=== PATIENT | female | born 1940 | race African-American/Black ===

== ENCOUNTER 2016-12-13 07:08 | Outpatient (CLI) | payer MEDICARE, OTHER ==
[2016-12-13 08:10] LABS: Hemoglobin A1c 8.5 % (4.0-6.0)
[2016-12-13 08:57] LABS: ALT (SGPT) 34 U/L (8-55); AST (SGOT) 28 U/L (5-34); Albumin 3.7 g/dL (3.4-4.8); Alkaline Phosphatase 82 U/L (40-150); Anion Gap 13 mmol/L (10-20); BUN (Urea Nitrogen) 13 mg/dL (9.8-20.1); Bilirubin, Direct 0.1 mg/dL (0.1-0.3); Bilirubin, Total 0.3 mg/dL (0.2-1.2); Calc. Creatinine Clearance 0 mL/min (70-130); Calcium 8.9 mg/dL (7.8-10.44); Carbon Dioxide 26 mmol/L (23-31); Cardiac Risk 4.3 (Less than 4.5); Chloride 105 mmol/L (98-107); Cholesterol 153 mg/dl (< 200 Desired); Estimated GFR-MDRD 59; Glucose 112 mg/dL (83-110); HDL Cholesterol 36 mg/dL (>60 Neg Risk); LDL Cholesterol, Calculated 87 mg/dL; Potassium 4.1 mmol/L (3.5-5.1); Protein, Total 7.5 g/dL (6.0-8.3); Sodium 140 mmol/L (136-145); Triglycerides 149 mg/dL (Less than 150)
== END 2016-12-13 07:09 ==
LOC: MADLABBHPM 07:08
PROVIDERS: ATTEND Family Medicine
DX: E11.9 Type 2 diabetes mellitus without complications (principal)
CPT/HCPCS: 36415; 80048; 80061; 80076; 83036

== ENCOUNTER 2017-03-11 07:28 | Outpatient (CLI) | payer MEDICARE, OTHER ==
[2017-03-11 07:57] LABS: Hemoglobin A1c 8.2 % (4.0-6.0)
[2017-03-11 08:58] LABS: ALT (SGPT) 39 U/L (8-55); AST (SGOT) 24 U/L (5-34); Albumin 3.9 g/dL (3.4-4.8); Alkaline Phosphatase 90 U/L (40-150); Anion Gap 13 mmol/L (10-20); BUN (Urea Nitrogen) 12 mg/dL (9.8-20.1); Bilirubin, Direct 0.2 mg/dL (0.1-0.3); Bilirubin, Total 0.5 mg/dL (0.2-1.2); Calc. Creatinine Clearance 0 mL/min (70-130); Calcium 9.3 mg/dL (7.8-10.44); Carbon Dioxide 26 mmol/L (23-31); Cardiac Risk 3.8 (Less than 4.5); Chloride 107 mmol/L (98-107); Cholesterol 148 mg/dl (< 200 Desired); Estimated GFR-MDRD 63; Glucose 130 mg/dL (83-110); HDL Cholesterol 39 mg/dL (>60 Neg Risk); LDL Cholesterol, Calculated 80 mg/dL; Potassium 4.2 mmol/L (3.5-5.1); Protein, Total 7.8 g/dL (6.0-8.3); Sodium 142 mmol/L (136-145); Triglycerides 143 mg/dL (Less than 150)
[2017-03-11 10:52] LABS: Hemoglobin 13.9 g/dL (12.0-16.0); Manual Diff?? YES; Mean Corpuscular HGB CONC 31.6 g/dL (32.0-36.0); Mean Corpuscular Volume 95.1 fL (81.0-99.0); Mean Platelet Volume 12.7 fL (7.4-10.4); Platelet Count 157 thou/uL (130-400); RBC Distribution Width 11.9 % (11.5-14.5); Red Blood Cell (RBC) Count 4.62 mill/uL (4.20-5.40); White Blood Cell (WBC) Count 5.1 thou/uL (4.8-10.8)
[2017-03-11 10:53] LABS: Eosinophils 2 % (0-10); Lymphocytes 48 % (21-51); MDiff Complete? YES; Monocytes 3 % (0-10); Neutrophil 47 % (42-75)
[2017-03-11 10:54] LABS: Anisocytosis SLIGHT = 6-15 cells (100X) (0-5/hpf); PLT Morphology Comment Appears Adequate
== END 2017-03-11 07:29 | disposition home or self-care (01) ==
LOC: MADLABBHPM 07:28
PROVIDERS: ATTEND Family Medicine
DX: E11.22 Type 2 diabetes mellitus with diabetic chronic kidney disease (principal); N18.3 Chronic kidney disease, stage 3 (moderate); E78.5 Hyperlipidemia, unspecified
CPT/HCPCS: 36415; 80048; 80061; 80076; 83036; 85025

== ENCOUNTER 2017-05-17 07:24 | Emergency (ER) | payer MEDICARE, MEDICAID ==
--- NOTE | 2017-05-17 08:34 | RAD ---
LEFT KNEE FOUR VIEWS: History: Knee pain. FINDINGS: Joint spaces are preserved. There is mild chondral calcinosis involving the lateral joint space. Mini mal degenerative change. No evidence of joint effusion. No evidence of fracture. Arterial calcificati on is noted. IMPRESSION: Minimal degenerative change. No acute abnormality. POS: [facility]
== END 2017-05-17 08:45 | disposition home or self-care (01) ==
LOC: MADERS 07:24
DX: S83.412A Sprain of medial collateral ligament of left knee, initial encounter (principal); K21.9 Gastro-esophageal reflux disease without esophagitis; E11.9 Type 2 diabetes mellitus without complications; I10 Essential (primary) hypertension; Z79.899 Other long term (current) drug therapy; Z79.82 Long term (current) use of aspirin; Z79.4 Long term (current) use of insulin; X50.1XXA Overexertion from prolonged static or awkward postures, initial encounter

== ENCOUNTER 2017-12-05 09:22 | Emergency (ER) | payer MEDICARE, MEDICAID | END 2017-12-05 09:52 | disposition left against medical advice (07) | LOC: MADERS 09:22 | DX: Z53.21 Procedure and treatment not carried out due to patient leaving prior to being seen by health care provider (principal) ==

== ENCOUNTER 2018-03-16 12:03 | Emergency (ER) | payer MEDICARE, MEDICAID ==
[2018-03-16] MEDS ORDERED: Ibuprofen 800 MG TAB ONE (13:20)
--- NOTE | 2018-03-16 13:48 | RAD ---
RIGHT TIBIA AND FIBULAR TWO VIEWS: HISTORY: Fall with tibia/fibula pain. FINDINGS: There are vascular calcifications noted. There are some arthritic changes of the knee. There are no signs of fracture or dislocation. IMPRESSION: No evidence of fracture. POS: [facility]
--- NOTE | 2018-03-16 13:49 | RAD ---
RIGHT HAND THREE VIEWS: History: Fall on hand. Pain. FINDINGS: There are arthritic changes of the hand and wrist. There are no signs of fracture or dislocation. IMPRESSION: No evidence of fracture. POS: [facility]
== END 2018-03-16 13:56 | disposition home or self-care (01) ==
LOC: MADERS 12:03
DX: S63.91XA Sprain of unspecified part of right wrist and hand, initial encounter (principal); S80.11XA Contusion of right lower leg, initial encounter; I10 Essential (primary) hypertension; E78.00 Pure hypercholesterolemia, unspecified; E11.9 Type 2 diabetes mellitus without complications; W01.0XXA Fall on same level from slipping, tripping and stumbling without subsequent striking against object, initial encounter

== ENCOUNTER 2019-07-10 09:41 | Outpatient (CLI) | payer MEDICARE, MEDICAID ==
--- NOTE | 2019-07-10 10:01 | RAD ---
3 views right shoulder: 07/10/2019 COMPARISON: None HISTORY: Chronic shoulder pain, fall one year ago FINDINGS: No displaced fracture or evidence of dislocation is seen. There is mild inferior osteophyte formation of the acromion and the acromioclavicular joint. No widening of the AC or CC interspace. IMPRESSION: Degenerative change. No acute osseous abnormality.
== END 2019-07-10 09:42 | disposition home or self-care (01) ==
LOC: MADRAD 09:41
PROVIDERS: ATTEND Family Medicine
DX: M25.511 Pain in right shoulder (principal); M19.011 Primary osteoarthritis, right shoulder

== ENCOUNTER 2019-12-18 20:00 | Outpatient (CLI) | payer MEDICARE, OTHER | END 2019-12-18 20:01 | disposition home or self-care (01) | LOC: MADLAB 20:00 | PROVIDERS: ATTEND Family Medicine | DX: B34.9 Viral infection, unspecified (principal) | CPT/HCPCS: 87633 ==

== ENCOUNTER 2019-12-23 10:52 | Emergency (ER) | payer MEDICARE, OTHER ==
[2019-12-23] MEDS ORDERED: Acetaminophen 500 MG TAB ONE (11:07)
[2019-12-23 11:42] LABS: ALT (SGPT) 21 U/L (8-55); AST (SGOT) 27 U/L (5-34); Albumin 3.7 g/dL (3.4-4.8); Alkaline Phosphatase 62 U/L (40-110); Anion Gap 16 mmol/L (10-20); BUN (Urea Nitrogen) 16 mg/dL (9.8-20.1); Bilirubin, Total 0.2 mg/dL (0.2-1.2); CK (CPK) 316 U/L (29-168); Calc. Creatinine Clearance 0 mL/min (70-130); Calcium 8.2 mg/dL (7.8-10.44); Carbon Dioxide 21 mmol/L (23-31); Chloride 104 mmol/L (98-107); Estimated GFR-MDRD 44; Globulin 3.6 g/dL (2.4-3.5); Glucose 222 mg/dL (83-110); Potassium 4.3 mmol/L (3.5-5.1); Protein, Total 7.3 g/dL (6.0-8.3); Sodium 137 mmol/L (136-145)
[2019-12-23 11:45] LABS: Band 2 % (5-11); Giant Platelets SLIGHT; Hemoglobin 12.9 g/dL (12.0-16.0); Large Platelets SLIGHT; Lymphocytes 12 % (21-51); MDiff Complete? YES; Mean Corpuscular HGB CONC 30.5 g/dL (32.0-36.0); Mean Corpuscular Volume 95.1 fL (78.0-98.0); Metamyelocyte 2 % (0-0); Monocytes 6 % (0-10); Neutrophil 65 % (42-75); Platelet Count 109 thou/uL (130-400); Platelet Morphology Comment Appears Decreased; RBC Distribution Width 12.1 % (11.5-14.5); RBC Morphology Normal; Reactive Lymphocytes 13 % (0-10); Red Blood Cell (RBC) Count 4.44 mill/uL (4.20-5.40); White Blood Cell (WBC) Count 4.3 thou/uL (4.8-10.8)
[2019-12-23 12:03] LABS: Bilirubin Negative (Negative); Blood, Urine Trace (Negative); Clarity Hazy (Clear); Glucose, Urine (Dipstick) Negative (Negative); Ketone, Urine 15 mg/dL (Negative); Leukocyte Negative (Negative); Nitrite Negative (Negative); Protein, Urine (Dipstick) 100 mg/dL (Neg-Trace); Urobilinogen 0.2 mg/dL (Less than 2); pH, Urine 5.5 (5.0-9.0)
[2019-12-23 12:11] LABS: Bacteria/HPF Rare-Few HPF (None Seen); RBC/HPF 0-3 HPF (0-3); WBC/HPF None Seen HPF (0-3)
[2019-12-23] MEDS ORDERED: Sodium Chloride 0.9% 100 ML ONE (13:36)
[2019-12-23] MEDS ORDERED: cefTRIAXone\\ROCEPHIN 2 GM VIAL ONE ×2 (13:36→13:37)
[2019-12-23] MEDS ORDERED: Sodium Chloride 0.9% 1,000 ML ONE (13:56)
--- NOTE | 2019-12-23 14:26 | RAD ---
CHEST ONE VIEW: History: Cough, fever. FINDINGS: Heart size is within normal limits for portable technique. Post op sternotomy change. Slightly increa sed opacity in both lungs irvin, more so in the right upper and lower lung zones. I cannot exclude t his as ground glass opacities. If Covid is clinically suspected, CT may be helpful in evaluating thes e findings. IMPRESSION: Possible ground glass opacities within the lung irvin. POS: [facility]
--- NOTE | 2019-12-23 14:44 | CT ---
CT CHEST: Date: 12-23-2019 Provided Clinical History: Fever FINDINGS: No comparisons. The heart, pericardium, and great vessels are suboptimally evaluated in the absence of IV contrast ma terial. Vascular calcification including coronary calcifications demonstrated. Median sternotomy tran ges are seen. There is no evidence for thoracic lymph node enlargement with limitations due to lack of IV contrast. The airway appears patent and of normal caliber. There is no pleural fluid or pneumothorax apparent. There are multifocal patchy areas of ground glass opacity throughout both lungs, predominating in the subpleural regions. No nolan consolidation is evident. The visualized portions of the upper abdomen demonstrate no significant abnormality. Left renal hypod ensity, statistically a cyst, but incompletely characterized in the absence of IV contrast material. Left adrenal nodule is too small to definitively characterize, statistically abnormal. The osseous structures demonstrate no concerning lytic or blastic lesions. IMPRESSION: Multifocal ground glass opacities involving the lung parenchyma bilaterally, typical for Covid pneumo kalpesh. Other etiologies could also produce this appearance, including infectious process such as influe nza, pneumonia, and inflammatory etiologies. POS: [facility]
== END 2019-12-23 14:21 | disposition short-term general hospital (02) ==
LOC: MADERS 10:52
DX: U07.1 COVID-19 (principal); J12.89 Other viral pneumonia; E86.0 Dehydration; E78.00 Pure hypercholesterolemia, unspecified; E11.9 Type 2 diabetes mellitus without complications; I10 Essential (primary) hypertension; Z79.82 Long term (current) use of aspirin; Z79.4 Long term (current) use of insulin; Z79.899 Other long term (current) drug therapy
CPT/HCPCS: 36415; 71045; 71250; 80053; 81003; 81015; 82550; 84484; 85025; 87086; 94760; 96365; J0696; J3490; J7050